=== PATIENT | male | born 1995 | race Two or more races ===

== ENCOUNTER 2017-12-12 19:09 | Emergency (ER) | payer SELFPAY ==
[2017-12-12] MEDS ORDERED: 0.9 % SODIUM CHLORIDE 10 ML DISP.SYRIN. IV ×2 (19:30)
[2017-12-12 19:39] LABS: ADD MAN DIFF? NO
[2017-12-12 19:40] LABS: BASO # 0.1 x10^3/uL (0.0-0.2); BASO % 1 % (0-3); EOS # 0.4 x10^3/uL (0.0-0.7); EOS % 4 % (0-3); HEMOGLOBIN 15.1 g/dL (13.0-17.5); LYMPH # 2.8 x10^3/uL (1.0-4.8); LYMPH % 23 % (24-48); MEAN CORPUSCULAR HEMOGLOBIN 28 pg (25-35); MEAN CORPUSCULAR HGB CONC 34 g/dL (31-37); MEAN CORPUSCULAR VOLUME 83 fL (79-100); MONO # 0.9 x10^3/uL (0.0-1.1); MONO % 7 % (0-9); NEUT % 65 % (31-73); PLATELET COUNT 305 x10^3/uL (140-400); RED BLOOD COUNT 5.42 x10^6/uL (4.30-5.70); RED CELL DISTRIBUTION WIDTH 14.5 % (11.5-14.5); WHITE BLOOD COUNT 12.3 x10^3/uL (4.0-11.0)
[2017-12-12 19:48] LABS: ANION GAP 11 (6-14); BLOOD UREA NITROGEN 14 mg/dL (8-26); CALCIUM 9.3 mg/dL (8.5-10.1); CARBON DIOXIDE 28 mmol/L (21-32); CHLORIDE 101 mmol/L (98-107); CREATININE 0.8 mg/dL (0.7-1.3); GLUCOSE 122 mg/dL (70-99); POTASSIUM 3.1 mmol/L (3.5-5.1); SODIUM 140 mmol/L (136-145)
[2017-12-12 19:51] LABS: INR 0.9 (0.8-1.1); PARTIAL THROMBOPLASTIN TIME 26 SEC (24-38)
[2017-12-12 19:52] LABS: ETHANOL < 10 mg/dL (0-10)
[2017-12-12 19:57] LABS: ALBUMIN 3.7 g/dL (3.4-5.0); ALK PHOS 115 U/L (46-116); ALT (SGPT) 82 U/L (16-63); AST (SGOT) 34 U/L (15-37); DIRECT BILIRUBIN 0.1 mg/dL (0.0-0.2); LIPASE 109 U/L (73-393); TOTAL BILIRUBIN 0.3 mg/dL (0.2-1.0); TOTAL PROTEIN 7.6 g/dL (6.4-8.2)
[2017-12-12] MEDS ORDERED: CONTRAST GIVEN MC ×2 (20:00)
[2017-12-12] MEDS: HYDROmorphone 2 MG/ML VIAL IV/SQ ×2 (20:03)
[2017-12-12] MEDS: KETOROLAC 30 MG/ML INJ. IV ×2 (20:03)
[2017-12-12] MEDS: IV NORMAL SALINE 1000ML BAG 1,000 ML IV ×2 (20:03)
[2017-12-12] MEDS: ONDANSETRON PF 4 MG/2 ML VIAL. IV ×2 (20:03)
[2017-12-12] MEDS: IOHEXOL 300 MG/ML 100ML VIAL. IV ×2 (20:30)
== END 2017-12-12 22:02 | disposition home or self-care (01) ==
LOC: ER 19:09
DX: S13.9XXA Sprain of joints and ligaments of unspecified parts of neck, initial encounter (principal); S43.401A Unspecified sprain of right shoulder joint, initial encounter; S00.03XA Contusion of scalp, initial encounter; S40.021A Contusion of right upper arm, initial encounter; M54.6 Pain in thoracic spine; W13.2XXA Fall from, out of or through roof, initial encounter; Y93.E5 Activity, floor mopping and cleaning; Y92.009 Unspecified place in unspecified non-institutional (private) residence as the place of occurrence of the external cause; Y99.8 Other external cause status
CPT/HCPCS: 36415; 70450; 71045; 71260; 72125; 72128; 72131; 74177; 80048; 80076; 83690; 85025; 85610; 85730; 86850; 86900; 86901; 96361; 96374; 96375; 99285-25; G0480; J1170; J1885; J2405; J7030; Q9967